=== PATIENT | male | born 1965 | race Caucasian/White ===

== ENCOUNTER 2018-07-27 11:42 | Emergency (ER) | payer OTHER ==
[2018-07-27 11:51] VITALS: BP 145/93
[2018-07-27] MEDS ORDERED: TETANUS/DIPHTHERIA/PERTUSSIS 0.5 ML SYRINGE IM ONE (11:56)
--- NOTE | 2018-07-27 11:57 | ED Physician Documentation ---
PD HPI SKIN - Stated complaint Stated Complaint: FINGER LAC - Chief complaint Chief Complaint: Laceration - History obtained from History obtained from: Patient - History of Present Illness Timing - onset: Today Timing - duration: Minutes (just prior to arrival) Timing - details: Abrupt onset Pain level max: 2 Pain level now: 2 Location: Other (left middle finger) Quality / character: Painful, Swelling Improved by: Other (rest) Worsened by (comment): COMMENT (bending the finger) Associated symptoms: Joint pain. No: Fever, Myalgias Contributing factors: Other (hit finger with a hammer at work accidentally) Similar symptoms before: Has not had sx before Recently seen: Not recently seen Review of Systems Ten Systems: 10 systems reviewed and negative Constitutional: denies: Fever Skin: reports: Laceration (s) Musculoskeletal: reports: Joint pain. denies: Neck pain, Back pain, Extremity pain, Extremity swelling, Joint swelling Neurologic: denies: Focal weakness, Numbness Endocrine: denies: Easy bruising / bleeding PD PAST MEDICAL HISTORY - Past Medical History Past Medical History: No - Present Medications Home Medications: Ambulatory Orders Medication Instructions Recorded Confirmed No Known Home Medications 07/27/18 07/27/18 - Allergies Allergies/Adverse Reactions: Allergies Allergy/AdvReac Type Severity Reaction Status Date / Time No Known Drug Allergies Allergy Verified 07/27/18 11:48 PD ED PE NORMAL - Vitals Vital signs reviewed: Yes - General General: Alert and oriented X 3 - HEENT HEENT: Atraumatic - Neck Neck: Supple, no meningeal sign - Cardiac Cardiac: RRR - Respiratory Respiratory: No respiratory distress - Abdomen Abdomen: Non distended - Male Male : Deferred - Rectal Rectal: Deferred - Derm Derm: Normal color, Warm and dry, No rash, Other (0.5cm laceration to dorsum of L middle finger with < then 5% nailbed subungal hematoma. ) - Extremities Extremities: No deformity, No tenderness to palpate, Normal ROM s pain, No edema, Other (L middle finger with contusion, full ROM however, painless) - Neuro Neuro: Alert and oriented X 3 Eye Opening: Spontaneous Motor: Obeys Commands Verbal: Oriented GCS Score: 15 Results - Vitals Vitals: Vital Signs - 24 hr 07/27/18 11:46 Temperature 35.9 C L Heart Rate 56 L Respiratory 14 Rate Blood Pressure 145/93 H O2 Saturation 96 PD MEDICAL DECISION MAKING - ED course Complexity details: considered differential, d/w patient ED course: ddx fracture, subungal hematoma, laceration, contusion 51 y/o M smashed his middle L finger with a hammer at work Pt has a tiny laceration to the dorsum of the finger not requiring repair. Has full ROM of the finger without pain. No significant nailbed injury. Cleaned wound here in the ED Updated tetanus and pt stable for discharge. Departure - Departure Disposition: 01 Home, Self Care Clinical Impression: Finger laceration Condition: Stable Record reviewed to determine appropriate education?: Yes Instructions: ED Laceration All Follow-Up: your, doctor [Other] - As Needed Discharge Date/Time: 07/27/18 12:14
== END 2018-07-27 12:14 | disposition home or self-care (01) ==
LOC: ED 11:42
DX: S61.213A Laceration without foreign body of left middle finger without damage to nail, initial encounter (principal); W22.8XXA Striking against or struck by other objects, initial encounter; Y92.89 Other specified places as the place of occurrence of the external cause; Y99.0 Civilian activity done for income or pay
CPT/HCPCS: 1040M; 90471; 90715; 99282; 99283